=== PATIENT | female | born 1985 | race Hispanic/Latino ===

== ENCOUNTER 2022-12-19 09:39 | Day surgery (SDC) | payer SELFPAY ==
[~2022-12-19 09:39] MED LIST: Iopamidol-370 76% 500 ML 1 ML ONE
[2022-12-19 10:23] LABS: #Eosinphils 0.1 thou/uL (0.0-0.7); #Lymphocytes 1.9 thou/uL (1.20-3.40); #Monocytes 0.4 thou/uL (0.11-0.59); #Neutrophils 6.1 thou/uL (1.40-6.50); %Basophils 0.4 % (0.0-1.0); %Eosinophils 1.1 % (0.0-10.0); %Lymphocytes 22.7 % (21.0-51.0); %Monocytes 4.6 % (0.0-10.0); %Neutrophils 71.2 % (42.0-75.0); Hemoglobin 15.1 g/dL (12.0-16.0); Mean Corpuscular HGB CONC 35.5 g/dL (32.0-36.0); Mean Corpuscular Hemoglobin 31.8 pg (27.0-31.0); Mean Corpuscular Volume 89.5 fl (78.0-98.0); Platelet Count 229 10x3/uL (130-400); RBC Distribution Width 11.1 % (11.5-14.5); Red Blood Cell (RBC) Count 4.76 mill/uL (4.20-5.40); White Blood Cell (WBC) Count 8.6 10x3/uL (4.8-10.8)
[2022-12-19 10:43] LABS: ALT (SGPT) 22 U/L (8-55); AST (SGOT) 16 U/L (5-34); Alkaline Phosphatase 114 U/L (40-110); Anion Gap 13 mmol/L (10-20); BUN (Urea Nitrogen) 17 mg/dL (7.0-18.7); Bilirubin, Total 0.4 mg/dL (0.2-1.2); Calc. Creatinine Clearance 0 mL/min (70-130); Calcium 9.6 mg/dL (7.8-10.44); Carbon Dioxide 25 mmol/L (22-29); Chloride 97 mmol/L (98-107); Estimated GFR 95; Globulin 3.4 g/dL (2.4-3.5); Glucose 351 mg/dL (70-105); Lipase 28 U/L (8-78); Protein, Total 7.4 g/dL (6.0-8.3); Sodium 131 mmol/L (136-145)
[2022-12-19] MEDS ORDERED: Ondansetron ODT 4 MG TAB ONE (11:31)
[2022-12-19 11:46] LABS: Bilirubin Negative (Negative); Blood, Urine Negative (Negative); Clarity Turbid (Clear); Glucose, Urine (Dipstick) Greater than 1000 mg/dL (Negative); Ketone, Urine Negative (Negative); Leukocyte Negative Leu/uL (Negative); Nitrite Negative (Negative); Pregnancy Test - Urine (BHCG) Negative (Negative); Protein, Urine (Dipstick) Negative (Neg-Trace); Specific Gravity, Urine 1.028 (1.002-1.036); Urobilinogen Normal mg/dL (Less than 2)
[2022-12-19 11:47] LABS: Pregu Control Background? CLEAR/WHITE (CLR/WHITE); Pregu Control Bar Appear? YES (CONTROL BAR); Specific Gravity 1.028 (1.002-1.036)
[2022-12-19] MEDS ORDERED: Ketorolac Tromethamine 30 MG/ML VIAL ONE (13:08)
[2022-12-19] MEDS ORDERED: Norepinephrine 4 MG/4 ML VIAL ONE (15:13)
[2022-12-19] MEDS ORDERED: fentaNYL PF 100 MCG/2 ML SYRINGE ONE (15:24)
[2022-12-19] MEDS ORDERED: Piperacillin/Tazobactam 3.375 GM VIAL ONE (15:49)
[2022-12-19] MEDS ORDERED: Sodium Chloride 0.9% 100 ML ONE (15:50)
[2022-12-19] MEDS ORDERED: Piperacillin/Tazobactam 3.375 GM in Sodium Chloride 0.9% 100 ML IVPB SCH (15:52)
[2022-12-19] MEDS ORDERED: Rocuronium Bromide 10 MG/ML (10ML VIAL) ONE (16:47)
[2022-12-19] MEDS ORDERED: PROPOFOL 200 MG/20 ML VIAL ONE (16:47)
[2022-12-19] MEDS ORDERED: ePHEDrine 50 MG/ML VIAL ONE (16:47)
[2022-12-19] MEDS ORDERED: Succinylcholine Chloride 100 MG/5 ML SYRINGE FS ONE (16:47)
[2022-12-19] MEDS ORDERED: Bupivacaine/Epinephrine 0.25% 30 ML VIAL ONE (16:58)
[2022-12-19] MEDS ORDERED: Insulin Regular 300 UNITS/3 ML VIAL ONE (17:10)
[2022-12-19] MEDS ORDERED: Ipratropium/Albuterol 3 ML NEB NEB PRN (18:00)
[2022-12-19] MEDS ORDERED: Dextrose 50% Abboject 50 ML SYRINGE SLOW IVP PRN (18:00)
[2022-12-19] MEDS ORDERED: Promethazine HCl 25 MG/ML VIAL IM PRN (18:00)
[2022-12-19] MEDS ORDERED: Ondansetron PF 4 MG/2 ML Vial IVP PRN (18:00)
[2022-12-19] MEDS ORDERED: Acetaminophen 325 MG TAB PO PRN (18:00)
[2022-12-19] MEDS ORDERED: Dextrose 5% in Water 1,000 ML IV PRN (18:00)
[2022-12-19] MEDS ORDERED: Ibuprofen 600 MG TAB PO PRN (18:01)
[2022-12-19] MEDS ORDERED: traMADol HCl 50 MG TAB PO PRN (18:02)
[2022-12-19] MEDS ORDERED: Fentanyl 100 MCG/2 ML VIAL ONE (18:14)
[2022-12-19] MEDS ORDERED: Acetaminophen 500 MG TAB ONE (18:23)
[2022-12-19] MEDS ORDERED: oxyCODONE 5 MG TAB ONE (18:23)
== END 2022-12-19 20:00 | disposition home or self-care (01) ==
LOC: ERS 09:39 → SDC 14:53
PROVIDERS: ATTEND Surgery
PROC: 0DTJ4ZZ Resection of Appendix, Percutaneous Endoscopic Approach (ICD-10-PCS; principal; 2022-12-19)
DX: K35.80 Unspecified acute appendicitis (principal); E11.9 Type 2 diabetes mellitus without complications; I10 Essential (primary) hypertension; E78.5 Hyperlipidemia, unspecified; R91.1 Solitary pulmonary nodule; Z79.84 Long term (current) use of oral hypoglycemic drugs; Z79.899 Other long term (current) drug therapy; Z97.5 Presence of (intrauterine) contraceptive device
CPT/HCPCS: 36415; 36416; 74177; 80053; 81003; 81025; 82010; 83690; 85025; 88304; 96374; A4649; C1776; J1815; J1885; J2543; J2704; J3010; J3490; Q0162; Q9967